=== PATIENT | male | born 1960 | race African-American/Black ===

== ENCOUNTER 2019-01-18 18:55 | Inpatient (IN) | payer OTHER ==
[~2019-01-18] VITALS: Ht 193 cm; Wt 104.3 kg
[2019-01-18] MEDS ORDERED: ONDANSETRON HCL 4MG/2ML INJ IV ONE (19:00)
[2019-01-18] MEDS ORDERED: MIDAZOLAM HCL 2 MG/2 ML VIAL IV ONE (19:00)
[2019-01-18] MEDS ORDERED: MORPHINE SULFATE 4 MG/ML CPJ (NOT FOR IM USE) IV ONE (19:15)
[2019-01-18] MEDS ORDERED: DILTIAZEM HCL 5MG/ML 5ML VIAL IV ONE ×2 (19:17→19:30)
[2019-01-18] MEDS ORDERED: CALCIUM CHLORIDE 1GM/10ML SYR IV ONE (19:22)
[2019-01-18] MEDS ORDERED: DILTIAZEM HCL 125 MG in DEXT 5% WATER 100 ML IV ONE ×4 (19:30)
[2019-01-18] MEDS ORDERED: CALCIUM CHLORIDE 1,000 MG in DEXT 5% WATER 90 ML IV ONE (19:30)
[2019-01-18 20:32] LABS: *AMPHETAMINES SCREEN URINE NEGATIVE (NEGATIVE); *BARBITURATES SCREEN URINE NEGATIVE (NEGATIVE); *BENZODIAZEPINES SCREEN URINE NEGATIVE (NEGATIVE); *COCAINE SCREEN URINE NEGATIVE (NEGATIVE)
[2019-01-18 20:33] LABS: CANNABINOID URINE SCREEN NEGATIVE (NEGATIVE); METHADONE URINE SCREEN NEGATIVE (NEGATIVE); OPIATES URINE SCREEN NEGATIVE (NEGATIVE); PHENCYCLIDINE URINE SCREEN NEGATIVE (NEGATIVE)
[2019-01-18 21:00] LABS: HEMOGLOBIN. 14.7 g/dL (14.0-18.0); RED BLOOD CELL COUNT 5.56 mill/uL (4.7-6.1)
[2019-01-18] MEDS ORDERED: INSULIN REGULAR (HUMULIN R) UD 100 UNITS/ML SYR IV ONE (21:00)
[2019-01-18 21:01] LABS: HEMATOCRIT. 45.4 % (42.0-52.0); MEAN CORPUSCULAR HEMOGLOBIN 26.5 pg (28.0-32.0); MEAN CORPUSCULAR VOLUME 81.7 fL (80.0-94.0)
[2019-01-18 21:02] LABS: EOSINOPHILS % 0.9 % (0.0-5.0); LYMPHOCYTES % 48.7 % (20.0-50.0); MEAN PLATELET VOLUME 10.1 fl (7.4-10.4); MONOCYTES % 6.7 % (2.0-8.0); NEUTROPHILS % 42.7 % (40.0-76.0); PLATELET 286 x1000/uL (130-400); RED CELL DISTRIBUTION WIDTH 13.2 % (11.6-14.6)
[2019-01-18] MEDS ORDERED: INSULIN REGULAR (HUMULIN R) 300UNITS/3ML IV ONE (21:15)
[2019-01-18] MEDS ORDERED: CLONIDINE 0.1MG TABLET PO PRN (23:00)
[2019-01-18] MEDS ORDERED: IPRATROPIUM/ALBUTEROL 0.5-3(2.5)MG/3ML NEB NEB PRN (23:00)
[2019-01-18] MEDS ORDERED: DOCUSATE SODIUM 100MG CAPSULE PO PRN (23:00)
[2019-01-18] MEDS ORDERED: MAGNESIUM/ALUMINUM HYDROXIDE/SIMETHICONE 30ML UDC PO PRN (23:00)
[2019-01-18] MEDS ORDERED: ENOXAPARIN 40MG/0.4ML SYR SUBCUT SCH (23:00)
[2019-01-18] MEDS ORDERED: ONDANSETRON HCL 4MG/2ML INJ IV PRN (23:00)
[2019-01-19] VITALS (38 sets, daily range): BP systolic 107–155; BP diastolic 69–126
[2019-01-19] MEDS ORDERED: DEXTROSE 50% WATER 50ML SYRINGE IV PRN (01:00)
[2019-01-19 01:40] LABS: CHLORIDE 98 mEq/L (98-107)
[2019-01-19] MEDS: SODIUM CHLORIDE 0.9% 1,000 ML IV SCH ×2 (02:59→14:33)
[2019-01-19] MEDS: BLOOD SUGAR DIAGNOSTIC STRIP TEST SCH ×4 (06:05→21:31)
[2019-01-19 06:10] LABS: CLARITY URINE CLEAR (CLEAR); COLOR URINE YELLOW (YELLOW); KETONES URINE 1+ (NEGATIVE); LEUKOCYTE ESTERASE URINE TRACE (NEGATIVE); NITRITE URINE NEGATIVE (NEGATIVE); OCCULT BLOOD URINE 3+ (NEGATIVE); PROTEIN URINE NEGATIVE (NEGATIVE); SPECIFIC GRAVITY URINE 1.024 (1.005-1.030)
[2019-01-19] MEDS: INSULIN LISPRO 100 UNITS/ML SUBCUT SCH ×4 (06:49→21:49)
[2019-01-19 07:37] LABS: CREATINE KINASE MB FRACTION 2.2 ng/mL (0.5-3.6)
[2019-01-19] MEDS: ACETAMINOPHEN 325MG TABLET PO PRN ×2 (08:54→17:01)
[2019-01-19] MEDS ORDERED: ASPIRIN 81MG EC TABLET PO SCH (09:00)
[2019-01-19] MEDS ORDERED: ENOXAPARIN 30MG/0.3ML SYR SUBCUT SCH (09:00)
[2019-01-19 09:52] LABS: HEMATOCRIT. 39.3 % (42.0-52.0); MEAN PLATELET VOLUME 9.7 fl (7.4-10.4); PLATELET 277 x1000/uL (130-400); RED BLOOD CELL COUNT 4.92 mill/uL (4.7-6.1); RED CELL DISTRIBUTION WIDTH 13.3 % (11.6-14.6)
[2019-01-19 09:53] LABS: HEMOGLOBIN. 12.3 g/dL (14.0-18.0)
[2019-01-19] MEDS: FISH OIL/OMEGA-3 FATTY ACIDS 1000MG CAPSULE PO SCH ×2 (12:31→17:50)
[2019-01-19] MEDS: DILTIAZEM HCL 60MG TABLET PO SCH ×2 (12:32→18:00)
[2019-01-19 12:40] LABS: PLATELET ESTIMATE NORMAL
[2019-01-19 16:56] LABS: CREATINE KINASE MB FRACTION 2.2 ng/mL (0.5-3.6)
[2019-01-19] MEDS ORDERED: ATORVASTATIN CALCIUM 40MG TABLET PO SCH (21:00)
[2019-01-19] MEDS ORDERED: INSULIN GLARGINE UD 100 UNITS/ML SYR SUBCUT SCH (22:00)
[2019-01-20] MEDS ORDERED: ENOXAPARIN 40MG/0.4ML SYR SUBCUT SCH (09:00)
== END 2019-01-19 22:40 | DRG 310 ==
LOC: ER 18:55 → MICUNO 22:35 → ENRESERV 22:58 → CANRESERV 22:58 → EDBEDREQSVC 01-19 01:08 → ENRESERV 01-19 01:38 → MICUNO 01-19 06:41 → 5WST 01-19 16:27
PROVIDERS: ADMIT Internal Medicine; ATTEND Internal Medicine
PROC: 5A2204Z Restoration of Cardiac Rhythm, Single (ICD-10-PCS; principal; 2019-01-18)
DX: I47.1 Supraventricular tachycardia (principal); I10 Essential (primary) hypertension; E78.5 Hyperlipidemia, unspecified; R74.0 Nonspecific elevation of levels of transaminase and lactic acid dehydrogenase [LDH]; E11.65 Type 2 diabetes mellitus with hyperglycemia
CPT/HCPCS: 36415; 36556; 71045; 80061; 80305; 81003; 82550; 82553; 82962; 83036; 83735; 83880; 84443; 84484; 85379; 92960; 93005; 93306; 93970; 96361; 96365; 96366; 99291; J1650; J1815; J2250; J2270; J2405; J3490; J7060